=== PATIENT | female | born 1950 | race Caucasian/White ===

== ENCOUNTER 2017-06-24 09:11 | Inpatient (IN) | payer OTHER ==
--- NOTE | 2017-06-24 09:23 | DR.AMS ---
HPI - Time Seen Time seen: 08:20 - HPI Comment HPI Comment: PATIENT IS CONFUSE AND WEAK. SHE IS DEHYDRATED AND CONFUSE. DIARRHEA IS SLOW DOWN. STILL NAUSEATED. - Complaint Cheif Complaint Doctors Comments: GENERALIZE PAIN AND WEAKNESS, N/V/D. STARTED SATURDAY. WORSE TODAY. - Reviewed Nurses Notes Reviewed: Yes - Source History Provided: Patient, Family Member - Mode of Arrival Mode of Arrival: Wheelchair - Timing Came On: Suddenly Symptoms: Worsening - Duration Duration: Constant Duration: Days - Quality Quality: Confusion - Severity Severity: Moderate - Context Recent: Fever, Nausea, Vomiting History Of: None - Associated Signs and Symptoms Associated Signs and Symptoms: Generalized Weakness, Confusion ROS - Review of Systems Constitutional: Fever (AT HOME.), Malaise, Weakness, Fatigue, Loss of Appetite. negative: Chills Eyes: negative: Eye Pain, Discharge ENTM: negative: Ear Pain, Nose Discharge, Nose Congestion, Throat Pain Respiratoy: Short of Breath. negative: Productive Cough, Non-Productive Cough, Wheezing, Hemoptysis Cardiovascular: Chest Pain. negative: Edema, Palpitations, Syncope Gastrointestinal/Abdominal: Abdominal Pain, Diarrhea, Nausea, Vomiting Genitourinary: negative: Dysuria, Hematuria Neurological: Headache, Weakness, Dizziness, Other (AMS) Musculoskeletal: Muscle Pain Integumentary: Dryness Hematologic/Lymphatic: No Symptoms Reported Endocrine: No Symptoms Reported All Other Systems: Reviewed and Negative Unable to Obtain Due To: Altered mental status PE - Vitals Vital Signs: Temp Pulse Pulse Resp BP BP BP 06/24/17 11:00 76 16 103/59 06/24/17 10:04 110/58 06/24/17 09:12 98.9 F 82 18 119/59 Pulse Ox 06/24/17 11:00 96 06/24/17 10:04 06/24/17 09:12 97 - General Limitations: Altered Mental Status General Appearance: Alert - Head Head Exam: Normal Inspection Head Exam Physical: Other (NONE) - Eyes Eye exam: Normal Appearance, PERRL, EOMI, Scleral Icterus. negative: Conjunctival Injection Pupils: Regular, Round: Bilateral, Reactive: Bilateral - ENT ENT Exam: Normal Oropharynx, Normal External Ear Exam, TM's Normal Bilaterally External Ear Exam: Normal External Inspection TM/Canal Exam: Bilateral Normal Nose Exam: Normal Nose Exam Mouth Exam: Normal Inspection Throat Exam: Normal Inspection. negative: Tonsillar Erythema, Tonsillomegaly, Tonsillar Exudate - Neck Neck Exam: Trachea Midline. negative: Tenderness, Meningismus, Lymphadenopathy - Chest Chest Inspection: Symmetric Chest Wall Rise - Respiratory Respiratory Exam: Normal Lung Sounds Bilat Respiratory Exam: Bilateral Rhonchi, Lower Rhonchi - Cardiovascular Cardiovascular Exam: Regular Rate, Normal Rhythm, Normal Heart Sounds - Abdominal Exam Abdominal Exam: Normal Bowel Sounds, Soft, Tenderness Abdominal Tenderness: Diffuse, Moderate - Extremities Extremities Exam: Normal Inspection - Back Back Exam: Normal Inspection - Neurological Neurological Exam: Alert, Other (CONFUSE.) Cranial Nerve Exam: Gag reflex (XI): Normal Motor Strength - LUE: 5/5 Motor Strength - RUE: 5/5 Motor Strength - LLE: 5/5 Motor Strength - RLE: 5/5 Upper Motor Neuron Exam: Babinski Sign: Normal DTR: achilles tendon (L): 4+, achilles tendon (R): 4+, brachioradialis (L): 4+, brachioradialis (R): 4+, Patellar (L): 4+, patellar (R): 4+ - Psychological Psychiatric Exam: Anxious Expanded Psychiatric Exam: Restlessness - Skin Skin Exam: Dry MDM - Additional Information Obtained Additional Information Obtained From: Family - Differential Diagnosis Metabolic: Dehydration, Hypercalcemia, Hypernatremia, Hypoglycemia, Hyponatremia , Hypoxemia Structural: CVA, Mass Lesion Infectious: Sepsis, UTI Course - Treatment Treatment: SEE ORDERS. IN FLUIDS IN ED. - Reevaluation 1st: Improved (SLIGHTLY IMPROVE.) - Consultation Consultation Comments: DISCUSS PATIENT WITH DR. SMITH. HE WILL ADMIT PATIENT. - Education/Counseling Education/Counseling: Patient, Family, Education Educated On: Treatment, Diagnosis ROR - Labs Reviewed Laboratory Results Reviewed?: Yes Result Diagrams: 06/24/17 09:30 06/24/17 09:30 Laboratory: WBC 12.6 X10^3/uL (3.6-10.0) H 06/24/17 09:30 RBC 3.97 X10^6/uL (3.5-5.4) 06/24/17 09:30 Hgb 11.9 g/dL (12.0-16.0) L 06/24/17 09:30 Hct 34.6 % (36.0-47.0) L 06/24/17 09:30 MCV 87.0 fL (80.0-100.0) 06/24/17 09:30 MCH 29.9 pg (27.0-34.0) 06/24/17: MCHC 34.4 g/dL (33.0-35.0) 06/24/17:30 RDW 13.8 % (11.6-16.5) 06/24/17:30 Plt Count 95 X10^3/uL (150.0-450.0) L 06/24/17:30 Plt Count Comment Decreased (ADEQUATE) A 06/24/17: MPV 11.9 fL (7.4-11.0) H 06/24/17:30 Neut % 75.5 % (42.0-75.0) H 06/24/17:30 Lymph % 8.4 % (21.0-51.0) L 06/24/17:30 [place] % 15.3 % (0.0-13.0) H 06/24/17:30 Eos % 0.5 % (0.9-2.9) L 06/24/17:30 Baso % 0.3 % (0.2-1.0) 06/24/17: Neut # 9.5 x10^3/uL (2.2-4.8) H 06/24/17:30 Lymph # 1.1 X10^3/uL (1.3-2.9) L 06/24/17:30 [place] # 1.9 x10^3/uL (0.3-0.8) H 06/24/17:30 Eos # 0.1 x10^3/uL (0.0-0.2) 06/24/17:30 Baso # 0.0 X10^3/uL (0.0-0.1) 06/24/17:30 Absolute Nucleated RBC 0.0 /100WBC 06/24/17:30 Total Counted 100 06/24/17:30 Neutrophils % (Manual) 73 % (39-76) 06/24/17 09:30 Lymphocytes % (Manual) 14 % (13-43) 06/24/17:30 Monocytes % (Manual) 13 % (4-9) H 06/24/17 09:30 Plt Morphology Comment Normal (NORMAL) 06/24/17 09:30 RBC Morphology Normal (NORMAL) 06/24/17 09:30 Sodium 139 mmol/L (136-145) 06/24/17 09:30 Corrected Sodium 139 mmol/L (136-145) 06/24/17 09:30 Potassium 3.1 mmol/L (3.5-5.1) L 06/24/17 09:30 Chloride 105 mmol/L (98-107) 06/24/17 09:30 Carbon Dioxide 22.6 mmol/L (21-32) 06/24/17 09:30 BUN 31 mg/dL (7-18) H 06/24/17 09:30 Creatinine 1.26 mg/dL (0.55-1.02) H 06/24/17 09:30 Est GFR (MDRD) Af Amer 54 (>60) L 06/24/17 09:30 Est GFR (MDRD) Non-Af 45 (>60) L 06/24/17 09:30 Glucose 118 mg/dL (65-99) H 06/24/17 09:30 Calcium 7.9 mg/dL (8.5-10.1) L 06/24/17 09:30 Corrected Calcium 9.5 mg/dL (8.5-10.1) 06/24/17 09:30 Total Bilirubin 4.90 mg/dL (0.2-1.0) H 06/24/17 09:30 AST 58 Units/L (15-37) H 06/24/17 09:30 ALT 31 Units/L (12-78) 06/24/17 09:30 Alkaline Phosphatase 111 Units/L (46-116) 06/24/17:30 Ammonia 12 umol/L (11-32) 06/24/17 09:30 Creatine Kinase 64 Units/L (26-192) 06/24/17 09:30 CK-MB (CK-2) < 1.0 ng/mL (0-4.0) 06/24/17 09:30 CK/CKMB % Calc 1.6 % (<4) 06/24/17 09:30 Troponin I < 0.02 ng/mL (0-1.5) 06/24/17 09:30 Total Protein 6.7 g/dL (6.4-8.2) 06/24/17 09:30 Albumin 2.0 g/dL (3.4-5.0) L 06/24/17 09:30 Globulin 4.7 g/dL (2.5-4.5) H 06/24/17 09:30 Albumin/Globulin Ratio 0.4 Ratio (1.1-2.1) L 06/24/17 09:30 Amylase 15 Units/L (25-115) L 06/24/17 09:30 Lipase 116 Units/L (73-393) 06/24/17 09:30 Influenza Type A (PCR) Negative (NEGATIVE) 06/24/17 10:00 Influenza Type B (PCR) Negative (NEGATIVE) 06/24/17 10:00 - XRAY XRAY Interpreted by: Radiologist XRAY Findings: REPORT DISCUSS WITH PATIENT. - Diagnosis Discharge Problem: Dehydration, Gastroenteritis, Hyperbilirubinemia, Biliary obstruction Abdominal pain Qualifiers: Abdominal location: generalized Qualified Code(s): R10.84 - Generalized abdominal pain - Discharge Plan Disposition: ADMITTED INPATIENT Condition: Stable - Follow ups/Referrals - Instructions
[2017-06-24] MEDS ORDERED: NS 1000 ML 1,000 ML IV ONE ×2 (09:30→12:00)
[2017-06-24 09:44] LABS: BASOPHILS % (AUTO) 0.3 % (0.2-1.0); EOSINOPHILS # (AUTO) 0.1 x10^3/uL (0.0-0.2); EOSINOPHILS % (AUTO) 0.5 % (0.9-2.9); HEMATOCRIT 34.6 % (36.0-47.0); HEMOGLOBIN 11.9 g/dL (12.0-16.0); LYMPHOCYTES # (AUTO) 1.1 X10^3/uL (1.3-2.9); LYMPHOCYTES % (AUTO) 8.4 % (21.0-51.0); MEAN CORPUSCULAR HEMOGLOBIN 29.9 pg (27.0-34.0); MEAN CORPUSCULAR HGB CONC 34.4 g/dL (33.0-35.0); MEAN PLATELET VOLUME 11.9 fL (7.4-11.0); MONOCYTES # (AUTO) 1.9 x10^3/uL (0.3-0.8); MONOCYTES % (AUTO) 15.3 % (0.0-13.0); NEUTROPHILS # (AUTO) 9.5 x10^3/uL (2.2-4.8); NEUTROPHILS % (AUTO) 75.5 % (42.0-75.0); PLATELET COUNT 95 X10^3/uL (150.0-450.0); RED BLOOD COUNT 3.97 X10^6/uL (3.5-5.4); RED CELL DISTRIBUTION WIDTH 13.8 % (11.6-16.5); WHITE BLOOD COUNT 12.6 X10^3/uL (3.6-10.0)
[2017-06-24 10:01] LABS: AMMONIA 12 umol/L (11-32)
--- NOTE | 2017-06-24 10:01 | CT ---
HISTORY: Altered mental status. Study: CT brain without contrast Comparison: None. Technique: Multiple axial images of the brain were obtained from the skull base to the vertex without administra tion of IV contrast. Dose reduction techniques including Automated Exposure Control (AEC) and adjust ment of mA and kV were utilized. Findings: Age-related cortical atrophy and chronic small vessel ischemic changes. No acute intraparenchymal hem orrhage or mass can be identified. No extra-axial fluid collections are seen. No alteration in the attenuation of the brain parenchyma can be identified to suggest acute or subacute ischemic change. The ventricular system is symmetric and nondilated. Mucous retention cysts are seen within the left m axillary sinus and left sphenoid sinus. Remaining visualized paranasal sinuses and mastoid air cells are clear. The osseous structures are intact. IMPRESSION: No obvious acute intracranial pathology. If clinically concerned for acute ischemia/infar ction, MRI brain is more sensitive. Reported By:
[2017-06-24 10:02] LABS: ALANINE AMINOTRANSFERASE 31 Units/L (12-78); ALKALINE PHOSPHATASE 111 Units/L (46-116); AMYLASE 15 Units/L (25-115); ASPARTATE AMINO TRANSFERASE 58 Units/L (15-37); BLOOD UREA NITROGEN 31 mg/dL (7-18); CALCIUM 7.9 mg/dL (8.5-10.1); CARBON DIOXIDE 22.6 mmol/L (21-32); CHLORIDE 105 mmol/L (98-107); CKMB % 1.6 % (<4); COR CA(FOR HYPOALB) 9.5 mg/dL (8.5-10.1); COR NA(FOR HYPERGLY) 139 mmol/L (136-145); CREATINE KINASE 64 Units/L (26-192); CREATINE KINASE MB < 1.0 ng/mL (0-4.0); CREATININE 1.26 mg/dL (0.55-1.02); LIPASE 116 Units/L (73-393); SODIUM 139 mmol/L (136-145); TOTAL PROTEIN 6.7 g/dL (6.4-8.2); TROPONIN I < 0.02 ng/mL (0-1.5); eGFR BLACK RACES 54 (>60); eGFR NON BLACK RACES 45 (>60)
[2017-06-24 10:04] LABS: PLATELET MORPHOLOGY COMMENT NORMAL (NORMAL)
--- NOTE | 2017-06-24 10:05 | RAD ---
History: Weakness Study: Chest single view Findings: Single AP portable examination of the chest is performed. There is a poor inspiratory effor t exaggerating heart size. There is a masslike density in the lower right paratracheal area extending to the right hilum. Lungs appear clear. Impression: Right paratracheal and right hilar mass possibly representing adenopathy is demonstrated. Follow-up CT examination is recommended. Reported By:
--- NOTE | 2017-06-24 13:13 | CT ---
HISTORY: Nausea, vomiting, weakness Study: CT chest abdomen pelvis with contrast Comparison: None Technique: Axial noncontrast images with coronal and sagittal reformats. Dose reduction procedures we re used with mA/kv adjusted for body size. This examination is limited due to the lack of intravenous and oral contrast. Findings: Chest CT without contrast: Examination of the mediastinum demonstrated no evidence for mediastinal ma sses, enlarged mediastinal adenopathy, or enlarged hilar adenopathy to the limitations of an unenhanc ed examination. Coronary artery calcifications are present. No pleural effusions are identified. No c hest wall or axillary abnormality is identified. Examination of the lung moore demonstrated no evide nce for nodules, masses, alveolar infiltrates, areas of consolidation, peribronchial thickening, or b ronchiectasis. CT abdomen pelvis without contrast the liver, spleen, adrenal glands, and pancreas are within normal limits only to the limitations of an unenhanced examination. No opaque stones are visible within the gallbladder. The left kidney is unobstructed and without stones. No left ureteral calculi are identif ied. There is right-sided hydro nephrosis proximal to an 18 mm renal pelvic calculus at the ureterope lvic junction. More distally the ureter is normal. calcific atherosclerotic changes present in a nond ilated abdominal aorta. No intraperitoneal or retroperitoneal lymphadenopathy is identified. There ar e no findings suggestive of diverticulitis or colitis. No pelvic masses, pelvic fluid, or pelvic lymp hadenopathy is identified. No bladder abnormality is identified. No lytic or blastic skeletal lesions are identified. IMPRESSION: No significant abnormality in the chest to the limitations of an unenhanced examination 18 mm obstructing right renal pelvic calculus located at the ureteropelvic junction Reported By:
[2017-06-24] MEDS ORDERED: PEPCID 20 MG IV PREMIX* 20 MG/50 ML BAG IV PRN (14:32)
[2017-06-24] MEDS ORDERED: ZOFRAN INJ 4 MG VIAL IVP PRN (14:32)
[2017-06-24] MEDS ORDERED: NS + KCL 20 MEQ/L 1,000 ML IV ONE (15:09)
[2017-06-24] MEDS: NS + KCL 20 MEQ/L 1,000 ML IV SCH (15:10)
[2017-06-24 15:45] LABS: BILIRUBIN,URINE 2+ (NEGATIVE); BLOOD/HEMOGLOBIN,URINE 5+ (NEGATIVE); GLUCOSE, URINE NEGATIVE (NEGATIVE); KETONES,URINE NEGATIVE (NEGATIVE); LEUKOCYTE ESTERASE ,URINE 3+ (NEGATIVE); NITRITES,URINE POSITIVE (NEGATIVE); PROTEIN,URINE 3+ (NEGATIVE); UROBILINOGEN,URINE 3+ (NORMAL)
[2017-06-24 15:52] LABS: APPEARANCE,URINE CLOUDY (CLEAR); COLOR,URINE ORANGE (YELLOW)
[2017-06-24 15:53] LABS: AMORPHOUS SEDIMENT,UR 1+ /HPF (NEGATIVE); BACTERIA,URINE 4+ /HPF (NEGATIVE); SQUAMOUS EPITHELIAL CELL,UR RARE /HPF (NEGATIVE)
[2017-06-24 16:26] VITALS: BMI 43.4
[2017-06-24] MEDS: PEPCID 20 MG IV PREMIX* 20 MG/50 ML BAG IV SCH ×2 (16:58→20:19)
[2017-06-24] MEDS: COLACE CAP 100 MG PO SCH ×2 (17:06→21:39)
[2017-06-24] MEDS: NS 1000 ML 1,000 ML IV SCH ×2 (17:31→21:38)
[2017-06-24 18:55] LABS: BILIRUBIN,URINE 2+ (NEGATIVE); BLOOD/HEMOGLOBIN,URINE 5+ (NEGATIVE); GLUCOSE, URINE NEGATIVE (NEGATIVE); KETONES,URINE NEGATIVE (NEGATIVE); LEUKOCYTE ESTERASE ,URINE 3+ (NEGATIVE); NITRITES,URINE NEGATIVE (NEGATIVE); PROTEIN,URINE 3+ (NEGATIVE); UROBILINOGEN,URINE 3+ (NORMAL)
[2017-06-24 19:06] LABS: APPEARANCE,URINE CLOUDY (CLEAR); COLOR,URINE AMBER (YELLOW)
[2017-06-24 19:07] LABS: AMORPHOUS SEDIMENT,UR 1+ /HPF (NEGATIVE); BACTERIA,URINE 4+ /HPF (NEGATIVE); SQUAMOUS EPITHELIAL CELL,UR RARE /HPF (NEGATIVE)
[2017-06-24] MEDS: MORPHINE SULFATE INJ 2 MG INJ IVP PRN (20:19)
[2017-06-24] MEDS: MILK OF MAGNESIA PO SCH (21:38)
[2017-06-24] MEDS: ROCEPHIN VIAL 1 GM 1 GM in NS 100 ML IV + SPIKE MINIBAG* 100 ML IV SCH (21:38)
[2017-06-25] MEDS: NS + KCL 20 MEQ/L 1,000 ML IV SCH ×2 (00:06→06:38)
[2017-06-25 05:09] LABS: BASOPHILS % (AUTO) 0.2 % (0.2-1.0); EOSINOPHILS % (AUTO) 0.4 % (0.9-2.9); HEMATOCRIT 31.9 % (36.0-47.0); HEMOGLOBIN 10.8 g/dL (12.0-16.0); LYMPHOCYTES # (AUTO) 0.9 X10^3/uL (1.3-2.9); LYMPHOCYTES % (AUTO) 8.1 % (21.0-51.0); MEAN CORPUSCULAR HEMOGLOBIN 29.8 pg (27.0-34.0); MEAN CORPUSCULAR HGB CONC 33.9 g/dL (33.0-35.0); MEAN CORPUSCULAR VOLUME 88.1 fL (80.0-100.0); MEAN PLATELET VOLUME 12.4 fL (7.4-11.0); MONOCYTES # (AUTO) 1.4 x10^3/uL (0.3-0.8); MONOCYTES % (AUTO) 12.2 % (0.0-13.0); NEUTROPHILS # (AUTO) 9.1 x10^3/uL (2.2-4.8); NEUTROPHILS % (AUTO) 79.1 % (42.0-75.0); PLATELET COUNT 115 X10^3/uL (150.0-450.0); RED BLOOD COUNT 3.62 X10^6/uL (3.5-5.4); RED CELL DISTRIBUTION WIDTH 13.9 % (11.6-16.5); WHITE BLOOD COUNT 11.5 X10^3/uL (3.6-10.0)
[2017-06-25] MEDS: NS 1000 ML 1,000 ML IV SCH ×6 (05:20→23:42)
[2017-06-25] MEDS: MORPHINE SULFATE INJ 2 MG INJ IVP PRN ×2 (05:21→13:03)
[2017-06-25 05:22] LABS: ALANINE AMINOTRANSFERASE 33 Units/L (12-78); ALBUMIN 1.6 g/dL (3.4-5.0); ALKALINE PHOSPHATASE 105 Units/L (46-116); AMYLASE 18 Units/L (25-115); ASPARTATE AMINO TRANSFERASE 66 Units/L (15-37); BLOOD UREA NITROGEN 23 mg/dL (7-18); CALCIUM 7.1 mg/dL (8.5-10.1); CHLORIDE 111 mmol/L (98-107); CREATININE 1.04 mg/dL (0.55-1.02); LIPASE 126 Units/L (73-393); SODIUM 142 mmol/L (136-145); eGFR BLACK RACES > 60 (>60); eGFR NON BLACK RACES 56 (>60)
[2017-06-25] MEDS: MILK OF MAGNESIA PO SCH ×2 (08:39→21:35)
[2017-06-25] MEDS: ROCEPHIN VIAL 1 GM 1 GM in NS 100 ML IV + SPIKE MINIBAG* 100 ML IV SCH (08:47)
[2017-06-25] MEDS: PEPCID 20 MG IV PREMIX* 20 MG/50 ML BAG IV SCH ×2 (08:47→21:40)
--- NOTE | 2017-06-25 11:48 | MRI ---
MRCP Indication: Hyperbilirubinemia, jaundice Technique: Multiplanar, multisequence imaging of the abdomen without contrast with MRCP imaging perfo rmed per departmental protocol. Comparison: CT dated 06/24/2017 Findings: No focal hepatic lesion. There is moderate gallbladder dilatation without definite filling defect to suggest gallstone or pericholecystic fluid to suggest acute cholecystitis. Common bile duct is normal in caliber. No filling defect. The spleen is unremarkable. The pancreas demonstrates mild prominence without dilatation of the pancreatic duct. No pancreatic mass. No peripancreatic fluid col lection or adenopathy. Adrenal glands are normal. Both kidneys demonstrate round T2 hyperintense lesi ons consistent with cyst. There is an approximate 15 mm stone within the right renal pelvis. Noted hy dronephrosis is identified. Visualized GI tract is unremarkable. Abdominal aorta is normal in caliber . No adenopathy within the visualized abdomen. Impression: 1. Gallbladder distention without cholelithiasis or acute cholecystitis. Normal caliber of the intrah epatic and extrahepatic bile ducts. 2. Multiple bilateral renal cysts with an approximate 15 mm stone within the right renal pelvis. Reported By:
[2017-06-25] MEDS ORDERED: LEVAQUIN PREMIX IV 500 MG 500 MG/100 ML BAG IV SCH (14:00)
[2017-06-25] MEDS ORDERED: NS 1000 ML 1,000 ML IV SCH (15:13)
[2017-06-25] MEDS: TYLENOL 325 MG TAB PO PRN (20:13)
[2017-06-25] MEDS: COLACE CAP 100 MG PO SCH (21:35)
[2017-06-26] MEDS: NS 1000 ML 1,000 ML IV SCH ×2 (04:36→21:01)
[2017-06-26] MEDS: TYLENOL 325 MG TAB PO PRN (05:29)
[2017-06-26 06:13] LABS: BASOPHILS % (AUTO) 0.3 % (0.2-1.0); EOSINOPHILS # (AUTO) 0.1 x10^3/uL (0.0-0.2); EOSINOPHILS % (AUTO) 0.7 % (0.9-2.9); HEMATOCRIT 33.5 % (36.0-47.0); HEMOGLOBIN 11.2 g/dL (12.0-16.0); LYMPHOCYTES # (AUTO) 0.9 X10^3/uL (1.3-2.9); LYMPHOCYTES % (AUTO) 6.5 % (21.0-51.0); MEAN CORPUSCULAR HEMOGLOBIN 29.6 pg (27.0-34.0); MEAN CORPUSCULAR HGB CONC 33.4 g/dL (33.0-35.0); MEAN CORPUSCULAR VOLUME 88.6 fL (80.0-100.0); MEAN PLATELET VOLUME 12.5 fL (7.4-11.0); NEUTROPHILS # (AUTO) 12.3 x10^3/uL (2.2-4.8); NEUTROPHILS % (AUTO) 85.5 % (42.0-75.0); PLATELET COUNT 158 X10^3/uL (150.0-450.0); RED BLOOD COUNT 3.78 X10^6/uL (3.5-5.4); RED CELL DISTRIBUTION WIDTH 14.2 % (11.6-16.5); WHITE BLOOD COUNT 14.4 X10^3/uL (3.6-10.0)
[2017-06-26 06:29] LABS: ALANINE AMINOTRANSFERASE 44 Units/L (12-78); ALBUMIN 1.6 g/dL (3.4-5.0); ALKALINE PHOSPHATASE 130 Units/L (46-116); ASPARTATE AMINO TRANSFERASE 86 Units/L (15-37); BLOOD UREA NITROGEN 18 mg/dL (7-18); CALCIUM 7.5 mg/dL (8.5-10.1); CARBON DIOXIDE 23.4 mmol/L (21-32); CHLORIDE 109 mmol/L (98-107); COR CA(FOR HYPOALB) 9.4 mg/dL (8.5-10.1); CREATININE 0.91 mg/dL (0.55-1.02); SODIUM 141 mmol/L (136-145); TOTAL PROTEIN 6.4 g/dL (6.4-8.2); eGFR BLACK RACES > 60 (>60); eGFR NON BLACK RACES > 60 (>60)
[2017-06-26] MEDS ORDERED: PHARMACY CONSULT - DOSE _____ XX SCH (09:00)
[2017-06-26] MEDS: MORPHINE SULFATE INJ 2 MG INJ IVP PRN (09:37)
[2017-06-26] MEDS: PEPCID 20 MG IV PREMIX* 20 MG/50 ML BAG IV SCH ×2 (09:38→20:59)
[2017-06-26] MEDS: ROCEPHIN VIAL 1 GM 1 GM in NS 100 ML IV + SPIKE MINIBAG* 100 ML IV SCH (09:38)
[2017-06-26] MEDS: MILK OF MAGNESIA PO SCH ×3 (09:39→21:00)
[2017-06-26] MEDS: MERREM VIAL 500 MG in NS 100 ML IV + SPIKE MINIBAG* 100 ML IV SCH ×2 (13:11→21:00)
[2017-06-26] MEDS ORDERED: MERREM PREMIX IV 500 MG 500 MG/50 ML BAG IV SCH (14:00)
[2017-06-26 16:47] LABS: STOOL FOR WBC NEGATIVE (NEGATIVE)
[2017-06-26] MEDS: COLACE CAP 100 MG PO SCH (21:00)
[2017-06-26] MEDS: TORADOL 15 MG VIAL IVP PRN (21:01)
--- NOTE | 2017-06-26 21:48 | US ---
Gallbladder sonogram Indication: Severe abdominal pain Comparison: CT performed on 06/24/2017 Technique: Multiple duarte scale and color flow Doppler images of the right upper quadrant were obtaine d. Findings: The liver is mildly increased in echogenicity consistent with steatosis however normal in size. No fo maikel hepatic lesion identified. The gallbladder is normal in caliber and wall thickness with questiona ble either small polyp or sludge ball within the gallbladder lumen. No pericholecystic fluid. The rig ht kidney measures 13 cm without evidence of hydronephrosis. IVC is within normal limits. No pancreat ic head mass or fluid collection identified.. IMPRESSION: 1. Either small polyp or sludge ball within the gallbladder without sonographic evidence of acute cho lecystitis. 2. Mild hepatic steatosis. Reported By:
[2017-06-27] MEDS: NS 1000 ML 1,000 ML IV SCH ×5 (04:37→21:44)
[2017-06-27] MEDS: MERREM VIAL 500 MG in NS 100 ML IV + SPIKE MINIBAG* 100 ML IV SCH ×3 (05:10→21:46)
[2017-06-27 06:12] LABS: BASOPHILS % (AUTO) 0.4 % (0.2-1.0); EOSINOPHILS # (AUTO) 0.2 x10^3/uL (0.0-0.2); EOSINOPHILS % (AUTO) 1.3 % (0.9-2.9); HEMATOCRIT 29.5 % (36.0-47.0); HEMOGLOBIN 9.9 g/dL (12.0-16.0); LYMPHOCYTES # (AUTO) 1.2 X10^3/uL (1.3-2.9); LYMPHOCYTES % (AUTO) 10.3 % (21.0-51.0); MEAN CORPUSCULAR HEMOGLOBIN 29.9 pg (27.0-34.0); MEAN CORPUSCULAR HGB CONC 33.6 g/dL (33.0-35.0); MEAN PLATELET VOLUME 11.6 fL (7.4-11.0); MONOCYTES # (AUTO) 0.9 x10^3/uL (0.3-0.8); MONOCYTES % (AUTO) 7.2 % (0.0-13.0); NEUTROPHILS # (AUTO) 9.7 x10^3/uL (2.2-4.8); NEUTROPHILS % (AUTO) 80.8 % (42.0-75.0); PLATELET COUNT 196 X10^3/uL (150.0-450.0); RED BLOOD COUNT 3.32 X10^6/uL (3.5-5.4); RED CELL DISTRIBUTION WIDTH 13.8 % (11.6-16.5)
[2017-06-27 06:41] LABS: ALANINE AMINOTRANSFERASE 49 Units/L (12-78); ALBUMIN 1.4 g/dL (3.4-5.0); ALKALINE PHOSPHATASE 123 Units/L (46-116); ASPARTATE AMINO TRANSFERASE 93 Units/L (15-37); BLOOD UREA NITROGEN 17 mg/dL (7-18); CALCIUM 7.2 mg/dL (8.5-10.1); CARBON DIOXIDE 22.4 mmol/L (21-32); CHLORIDE 110 mmol/L (98-107); COR CA(FOR HYPOALB) 9.3 mg/dL (8.5-10.1); SODIUM 141 mmol/L (136-145); eGFR BLACK RACES > 60 (>60); eGFR NON BLACK RACES > 60 (>60)
[2017-06-27] MEDS: MILK OF MAGNESIA PO SCH ×2 (09:04→21:53)
[2017-06-27] MEDS: ROCEPHIN VIAL 1 GM 1 GM in NS 100 ML IV + SPIKE MINIBAG* 100 ML IV SCH (09:05)
[2017-06-27] MEDS: PEPCID 20 MG IV PREMIX* 20 MG/50 ML BAG IV SCH ×2 (09:05→21:45)
[2017-06-27] MEDS: TORADOL 15 MG VIAL IVP PRN (12:20)
--- NOTE | 2017-06-27 16:23 | NM ---
HISTORY: 66-year-old female with abnormal right upper quadrant ultrasound. Study: Nuclear medicine HIDA scan with ejection fraction Comparison: Right upper quadrant ultrasound 06/26/2017 Technique: Multiple scintigraphic images of the abdomen were obtained the intravenous administration of 5.5 mCi of technetium labeled Choletec. Following distention of the gallbladder with radiotracer a fatty meal consisting of 8 oz ensure plus was ingested. An estimated gallbladder ejection fraction was calculated based on the physiologic res ponse of this infusion. Findings: Homogeneous uptake of radiotracer is seen throughout the liver. The intrabiliary ductal system is ob served normally. The common hepatic and common bile duct grossly appear unremarkable with normal maribel iary-bowel transit. The gallbladder is observed to fill normally. After administration of fatty meal orally, an abnormal gallbladder ejection fraction of 10% (normal > 35%) is observed. IMPRESSION: 1. Normal hepatobiliary imaging scan. 2. Abnormally low gallbladder ejection fraction, this can be seen with chronic cholecystitis and maribel iary dyskinesia, correlate clinically and consider surgical consultation. Reported By:
[2017-06-27] MEDS: COLACE CAP 100 MG PO SCH (21:44)
[2017-06-27] MEDS: MORPHINE SULFATE INJ 2 MG INJ IVP PRN (21:45)
[2017-06-28] MEDS: NS 1000 ML 1,000 ML IV SCH ×6 (00:20→20:45)
[2017-06-28 06:06] LABS: ALANINE AMINOTRANSFERASE 56 Units/L (12-78); ALBUMIN 1.5 g/dL (3.4-5.0); ALKALINE PHOSPHATASE 196 Units/L (46-116); ASPARTATE AMINO TRANSFERASE 126 Units/L (15-37); BLOOD UREA NITROGEN 16 mg/dL (7-18); CALCIUM 6.9 mg/dL (8.5-10.1); CARBON DIOXIDE 22.1 mmol/L (21-32); CHLORIDE 109 mmol/L (98-107); COR CA(FOR HYPOALB) 8.9 mg/dL (8.5-10.1); CREATININE 0.76 mg/dL (0.55-1.02); SODIUM 141 mmol/L (136-145); eGFR BLACK RACES > 60 (>60); eGFR NON BLACK RACES > 60 (>60)
[2017-06-28] MEDS: MERREM VIAL 500 MG in NS 100 ML IV + SPIKE MINIBAG* 100 ML IV SCH ×3 (06:06→22:07)
[2017-06-28] MEDS: MORPHINE SULFATE INJ 2 MG INJ IVP PRN ×2 (06:07→19:23)
[2017-06-28 06:14] LABS: BASOPHILS # (AUTO) 0.1 X10^3/uL (0.0-0.1); BASOPHILS % (AUTO) 0.6 % (0.2-1.0); EOSINOPHILS # (AUTO) 0.1 x10^3/uL (0.0-0.2); EOSINOPHILS % (AUTO) 0.9 % (0.9-2.9); HEMATOCRIT 28.7 % (36.0-47.0); HEMOGLOBIN 9.8 g/dL (12.0-16.0); LYMPHOCYTES # (AUTO) 1.3 X10^3/uL (1.3-2.9); LYMPHOCYTES % (AUTO) 12.7 % (21.0-51.0); MEAN CORPUSCULAR HEMOGLOBIN 30.2 pg (27.0-34.0); MEAN CORPUSCULAR HGB CONC 34.2 g/dL (33.0-35.0); MEAN CORPUSCULAR VOLUME 88.2 fL (80.0-100.0); MEAN PLATELET VOLUME 11.9 fL (7.4-11.0); MONOCYTES # (AUTO) 0.7 x10^3/uL (0.3-0.8); MONOCYTES % (AUTO) 6.3 % (0.0-13.0); NEUTROPHILS # (AUTO) 8.4 x10^3/uL (2.2-4.8); NEUTROPHILS % (AUTO) 79.5 % (42.0-75.0); PLATELET COUNT 228 X10^3/uL (150.0-450.0); RED BLOOD COUNT 3.25 X10^6/uL (3.5-5.4); WHITE BLOOD COUNT 10.5 X10^3/uL (3.6-10.0)
[2017-06-28] MEDS: ROCEPHIN VIAL 1 GM 1 GM in NS 100 ML IV + SPIKE MINIBAG* 100 ML IV SCH (08:21)
[2017-06-28] MEDS: MILK OF MAGNESIA PO SCH ×2 (08:21→20:46)
[2017-06-28] MEDS: PEPCID 20 MG IV PREMIX* 20 MG/50 ML BAG IV SCH ×2 (08:21→20:45)
[2017-06-28] MEDS: TORADOL 15 MG VIAL IVP PRN (12:09)
[2017-06-28] MEDS: COLACE CAP 100 MG PO SCH (20:46)
[2017-06-29] MEDS: NS 1000 ML 1,000 ML IV SCH ×7 (00:33→22:35)
[2017-06-29] MEDS: MERREM VIAL 500 MG in NS 100 ML IV + SPIKE MINIBAG* 100 ML IV SCH ×2 (05:35→15:25)
[2017-06-29 05:36] LABS: BASOPHILS # (AUTO) 0.1 X10^3/uL (0.0-0.1); BASOPHILS % (AUTO) 0.6 % (0.2-1.0); EOSINOPHILS # (AUTO) 0.1 x10^3/uL (0.0-0.2); EOSINOPHILS % (AUTO) 1.2 % (0.9-2.9); HEMATOCRIT 28.2 % (36.0-47.0); HEMOGLOBIN 9.6 g/dL (12.0-16.0); LYMPHOCYTES # (AUTO) 1.5 X10^3/uL (1.3-2.9); LYMPHOCYTES % (AUTO) 15.2 % (21.0-51.0); MEAN CORPUSCULAR HEMOGLOBIN 30.1 pg (27.0-34.0); MEAN CORPUSCULAR HGB CONC 34.2 g/dL (33.0-35.0); MEAN CORPUSCULAR VOLUME 87.9 fL (80.0-100.0); MEAN PLATELET VOLUME 11.5 fL (7.4-11.0); MONOCYTES # (AUTO) 0.7 x10^3/uL (0.3-0.8); MONOCYTES % (AUTO) 7.2 % (0.0-13.0); NEUTROPHILS # (AUTO) 7.5 x10^3/uL (2.2-4.8); NEUTROPHILS % (AUTO) 75.8 % (42.0-75.0); PLATELET COUNT 258 X10^3/uL (150.0-450.0); RED CELL DISTRIBUTION WIDTH 13.9 % (11.6-16.5); WHITE BLOOD COUNT 9.9 X10^3/uL (3.6-10.0)
[2017-06-29 05:41] LABS: ALANINE AMINOTRANSFERASE 52 Units/L (12-78); ALBUMIN 1.5 g/dL (3.4-5.0); ALKALINE PHOSPHATASE 184 Units/L (46-116); ASPARTATE AMINO TRANSFERASE 99 Units/L (15-37); BLOOD UREA NITROGEN 13 mg/dL (7-18); CARBON DIOXIDE 25.4 mmol/L (21-32); CHLORIDE 108 mmol/L (98-107); CREATININE 0.77 mg/dL (0.55-1.02); SODIUM 141 mmol/L (136-145); TOTAL PROTEIN 5.9 g/dL (6.4-8.2); eGFR BLACK RACES > 60 (>60); eGFR NON BLACK RACES > 60 (>60)
[2017-06-29] MEDS ORDERED: POTASSIUM CHL 60 MEQ/NS 0.45% 500 ML IV PRN (07:34)
[2017-06-29] MEDS ORDERED: MAGNESIUM SULFATE 1 GM/100 mL PREMIX 1 GM/100 ML BAG IV PRN (07:34)
[2017-06-29] MEDS ORDERED: K-LYTE EFFERVESCENT PO PRN (07:34)
[2017-06-29] MEDS ORDERED: K-RIDER 10 MEQ/NS 100 ML 10 MEQ/100 ML BAG IV PRN (07:34)
[2017-06-29] MEDS ORDERED: POTASSIUM CHL 40 MEQ/NS 0.45% 500 ML IV PRN (07:34)
[2017-06-29] MEDS ORDERED: MAG-OX TAB PO PRN (07:34)
[2017-06-29] MEDS ORDERED: POTASSIUM CHLORIDE LIQ 20 MEQ UDC PO PRN (07:34)
[2017-06-29] MEDS: PEPCID 20 MG IV PREMIX* 20 MG/50 ML BAG IV SCH ×2 (08:56→22:03)
[2017-06-29] MEDS: MILK OF MAGNESIA PO SCH ×2 (08:56→20:39)
[2017-06-29] MEDS: ROCEPHIN VIAL 1 GM 1 GM in NS 100 ML IV + SPIKE MINIBAG* 100 ML IV SCH (08:56)
--- NOTE | 2017-06-29 17:17 | CT ---
CT ABDOMEN AND PELVIS WITHOUT CONTRAST CLINICAL HISTORY: 66-year-old female with abdominal pain. COMPARISON: CT of the chest, abdomen and pelvis 06/24/2017. TECHNIQUE: Multiple contiguous computed tomographic axial images of the abdomen and pelvis were obtai mati without the use of oral or intravenous contrast. Images were reformatted in the coronal and sagit nidia planes. FINDINGS: Interval development of moderate right and small left pleural effusions with associated compressive a telectasis without mass, nodule or pneumothorax. The imaged inferior mediastinum and heart are ivania l in appearance without evidence of pericardial effusion. The liver, gallbladder, pancreas, and spleen are within normal limits for noncontrast imaging. Adrenal glands are unremarkable bilaterally. Re-demonstration of large obstructing right UPJ stone measuring approximately 1.4 cm with right renal edema and perihilar nephric/periureteric stranding. Mild periureteral stranding distal to this with no other ureteral stone. No evidence of bladder stone. No left-sided nephroureterolithiasis or hydroureteronephrosis. Ureters follow a normal course to a well-distended urinary bladder. Status post hysterectomy. Vaginal cuff and adnexa are unremarkable. Pelvic phleboliths are present. The appendix is normal in appearance. The bowel is without obstruction or inflammation and there is no free fluid or free air within the peritoneal cavity. There are no pathologically enlarged lymph n odes in the abdomen or pelvis. Scattered atherosclerotic calcification throughout the aorta and its branches. Large body habitus with mild body wall edema. The osseous structures are intact without fracture or malalignment. Stable degenerative changes of th e imaged spine. IMPRESSION: 1. Re-demonstration of obstructive right UPJ stone measuring approximately 1.4 cm with associated hyd roureteronephrosis, renal edema and associated inflammation. Correlate with urinalysis. 2. Normal appendix. 3. Status post hysterectomy. Reported By:
[2017-06-29] MEDS: COLACE CAP 100 MG PO SCH (20:39)
[2017-06-29] MEDS: INVANZ INJ 1 GM VIAL 1 GM in NS 100 ML IV + SPIKE MINIBAG* 100 ML IV SCH (20:39)
[2017-06-29] MEDS ORDERED: POTASSIUM CHLORIDE LIQ 20 MEQ UDC PO ONE (22:14)
[2017-06-29] MEDS ORDERED: PEPCID TAB 20 MG PO ONE (22:15)
[2017-06-29] MEDS: ULTRAM PO PRN (22:45)
[2017-06-30] MEDS: NS 1000 ML 1,000 ML IV SCH ×6 (03:55→23:58)
[2017-06-30 05:35] LABS: BASOPHILS # (AUTO) 0.1 X10^3/uL (0.0-0.1); EOSINOPHILS # (AUTO) 0.2 x10^3/uL (0.0-0.2); EOSINOPHILS % (AUTO) 1.9 % (0.9-2.9); HEMOGLOBIN 9.2 g/dL (12.0-16.0); LYMPHOCYTES # (AUTO) 1.8 X10^3/uL (1.3-2.9); LYMPHOCYTES % (AUTO) 21.9 % (21.0-51.0); MEAN CORPUSCULAR HEMOGLOBIN 30.2 pg (27.0-34.0); MEAN CORPUSCULAR HGB CONC 34.3 g/dL (33.0-35.0); MEAN CORPUSCULAR VOLUME 88.1 fL (80.0-100.0); MEAN PLATELET VOLUME 11.2 fL (7.4-11.0); MONOCYTES # (AUTO) 0.6 x10^3/uL (0.3-0.8); MONOCYTES % (AUTO) 7.9 % (0.0-13.0); NEUTROPHILS # (AUTO) 5.5 x10^3/uL (2.2-4.8); NEUTROPHILS % (AUTO) 67.3 % (42.0-75.0); PLATELET COUNT 277 X10^3/uL (150.0-450.0); RED BLOOD COUNT 3.06 X10^6/uL (3.5-5.4); RED CELL DISTRIBUTION WIDTH 14.2 % (11.6-16.5); WHITE BLOOD COUNT 8.1 X10^3/uL (3.6-10.0)
[2017-06-30 05:51] LABS: ALANINE AMINOTRANSFERASE 53 Units/L (12-78); ALBUMIN 1.5 g/dL (3.4-5.0); ALKALINE PHOSPHATASE 216 Units/L (46-116); ASPARTATE AMINO TRANSFERASE 99 Units/L (15-37); BLOOD UREA NITROGEN 9 mg/dL (7-18); CALCIUM 7.1 mg/dL (8.5-10.1); CHLORIDE 109 mmol/L (98-107); COR CA(FOR HYPOALB) 9.1 mg/dL (8.5-10.1); CREATININE 0.61 mg/dL (0.55-1.02); SODIUM 141 mmol/L (136-145); TOTAL PROTEIN 6.1 g/dL (6.4-8.2); eGFR BLACK RACES > 60 (>60); eGFR NON BLACK RACES > 60 (>60)
[2017-06-30] MEDS ORDERED: INVANZ INJ 1 GM VIAL IM ONE (09:00)
[2017-06-30] MEDS ORDERED: PEPCID TAB 20 MG PO ONE (09:00)
[2017-06-30] MEDS: INVANZ INJ 1 GM VIAL 1 GM in NS 100 ML IV + SPIKE MINIBAG* 100 ML IV SCH (09:31)
[2017-06-30] MEDS: PEPCID 20 MG IV PREMIX* 20 MG/50 ML BAG IV SCH (09:31)
[2017-06-30] MEDS: MILK OF MAGNESIA PO SCH ×2 (09:31→21:41)
[2017-06-30] MEDS ORDERED: XYLOCAINE 1 % (PLAIN) ONE (10:27)
--- NOTE | 2017-06-30 13:32 | DR.H&P ---
H&P - History & Physical for Day of: H&P Date: 06/24/17 - Chief Complaint Chief Complaint: REPORTS PER FAMILY- PATIENT IS CONFUSE AND WEAK. SHE IS DEHYDRATED AND CONFUSE. DIARRHEA IS SLOW DOWN. STILL NAUSEATED. - Allergies Allergies/Adverse Reactions: Allergies Allergy/AdvReac Type Severity Reaction Status Date / Time No Known Drug Allergies Allergy Verified 06/24/17 09:31 - History of Present Illness History of Present Illness: PT IS 66 WF ER ADMIT AFTER PRESENTING WITH FAMILY CO N/V/D AND SEVERE WEAKNESS AND NEW ONSET OF CONFUSION. PT HAD ADMISSION LABS IN ED REVEALING ABNORMAL LFT'S AND DEHYDRATION AND UTI. PT IS JAUNDICE, ACUTE FINDINGS. PT'S FAMILY STATE SHE HAD SUDDEN ON N/V/D FOR SEVERAL DAYS AND PROGRESS TO DEHYDRATION AND CONFUSION. PT HAD CT HEAD AND CT ABD PELVIS IN ED. PT ADMITTED FOR FURTHER EVLAUATION AND TREATMENT OF ACUTE ILLNESS. - Past Medical History Past Medical History: Arthritis, Hypertension - Past Surgical History Surgical History: Hysterectomy, Tonsillectomy - Family History Family Medical History: Cancer - Social History Does patient currently use any type of tobacco product: No Have you used tobacco products in the last 12 months: No Type of Tobacco Use: None Does any household member use tobacco: No Alcohol Use: None Drug Use: None - Medications Home Medications: Losartan Potassium 12.5 mg PO DAILY 06/24/17 [History Confirmed 06/24/17] - Review of Systems Constitutional: Fever, Chills, Weakness, Malaise Eyes: No Symptoms Reported ENT: No Symptoms Reported Cardiovascular: Edema Gastrointestinal: Nausea, Vomiting, Abdominal Pain, Diarrhea Genitourinary: No Symptoms Reported Musculoskeletal: Back Pain Skin: Jaundice Neurological: Weakness, Confusion - Physical Exam Vital Signs: Temperature 98.2 F Pulse Rate [Right Brachial] 71 Pulse Rate [Left Brachial] 78 Pulse Rate 82 Respiratory Rate 20 Blood Pressure [Left Arm] 120/64 Blood Pressure [Right Arm] 136/69 Blood Pressure 119/59 O2 Sat by Pulse Oximetry 96 Oriented: Person Eyes: Normal Ear: Normal Nose: Normal Throat: Normal Respiratory: RLL Diminished, LLL Diminished Cardiovascular: Tachycardia, Edema : Normal Auscultation: Bowel Sounds: Increased Tenderness: RUQ, Epigastric Skin: Decreased Turgur, Other (GENERALIZED JAUNDICE) Psychiatric: Normal Speech Pattern: Clear, Appropriate - Assessment/Plan (1) Abdominal pain Qualifiers: Abdominal location: generalized Qualified Code(s): R10.84 - Generalized abdominal pain Status: Acute Plan: ADMIT, IV HYDRATION. DAILY LABS, IV ATBX, BLOOD AND URINE CULTURES. VERIFY HOME MEDS, PAIN AND NAUSEA CONTROL. BP MONITORING. STOOL STUDIES (2) UTI (urinary tract infection) Status: Acute (3) Dehydration Status: Acute (4) Gastroenteritis Status: Acute (5) Hyperbilirubinemia Status: Acute
--- NOTE | 2017-06-30 13:37 | PCM.PROG ---
Progress Note - Progress Note for Day of Date: 06/29/17 (SCRIBE FOR DR SMITH) - Subjective Subjective: 66 WF ADMITTED ON 06/24 WITH DEHYDRATION, GE, UTI. PT HAS HAD TREATMENT WITH IVF AND IV ATBX. PT HAS POSTIVE BLOOD AND URINE CULTURES FOR ECOLI, CURRENTLY ON MEROPENEM. PT HAS IMPROVED BILI, LFT'S. WITH TREATMENT PT HAS HAD GRADUAL IMPROVEMENT. AFEBRILE, PT STATES SHE STILL HAS MILD RUQ PAIN AND LOWER EXTREMITY EDEMA AND WEAKNESS. - Past Medical Family Social History Past Med/Fam/Surg Hx: No changes since H&P Allergies: Allergies No Known Drug Allergies Allergy (Verified 06/24/17 09:31) - Review of Systems ROS: No change since H&P - Vital Signs and I&O's Vital Signs: Temperature 98.2 F Pulse Rate [Right Brachial] 71 Pulse Rate [Left Brachial] 78 Pulse Rate 82 Respiratory Rate 20 Blood Pressure [Left Arm] 120/64 Blood Pressure [Right Arm] 136/69 Blood Pressure 119/59 O2 Sat by Pulse Oximetry 96 Intake and Output: Intake & Output 06/28/17 06/29/17 06/30/17 07/01/17 11:59 11:59 11:59 11:59 Intake Total 2910 3000 1357 Balance 2910 3000 1357 - Physical Exam Oriented: Person Eyes: Normal Ear: Normal Nose: Normal Throat: Normal Cardiovascular: Tachycardia, Edema : Normal Auscultation: Bowel Sounds: Increased Tenderness: RUQ, Epigastric Skin: Decreased Turgur, Other (GENERALIZED JAUNDICE, MILD, IMPROVING) Psychiatric: Normal Speech Pattern: Clear, Appropriate - Laboratory and Diagnostics Result Diagrams: 06/30/17 04:25 06/30/17 04:25 Labs: 06/24/17 09:26 Blood Blood Culture - Final 06/26/17 16:15 Stool Stool Culture - Final 06/26/17 16:15 Stool - Final 06/25/17 13:36 Blood Blood Culture - Preliminary 06/25/17 13:20 Blood Blood Culture - Preliminary 06/24/17 09:30 Blood Blood Culture - Final Escherichia Coli 06/24/17 18:41 Urine,Clean Catch Urine Culture - Final Escherichia Coli Laboratory WBC 8.1 X10^3/uL (3.6-10.0) 06/30/17 04:25 RBC 3.06 X10^6/uL (3.5-5.4) L 06/30/17 04:25 Hgb 9.2 g/dL (12.0-16.0) L 06/30/17 04:25 Hct 27.0 % (36.0-47.0) L 06/30/17 04:25 MCV 88.1 fL (80.0-100.0) 06/30/17 04:25 MCH 30.2 pg (27.0-34.0) 06/30/17 04:25 MCHC 34.3 g/dL (33.0-35.0) 06/30/17 04:25 RDW 14.2 % (11.6-16.5) 06/30/17 04:25 Plt Count 277 X10^3/uL (150.0-450.0) 06/30/17 04:25 Plt Count Comment Decreased (ADEQUATE) A 06/24/17 09:30 MPV 11.2 fL (7.4-11.0) H 06/30/17 04:25 Neut % 67.3 % (42.0-75.0) 06/30/17 04:25 Lymph % 21.9 % (21.0-51.0) 06/30/17 04:25 [place] % 7.9 % (0.0-13.0) 06/30/17 04:25 Eos % 1.9 % (0.9-2.9) 06/30/17 04:25 Baso % 1.0 % (0.2-1.0) 06/30/17 04:25 Neut # 5.5 x10^3/uL (2.2-4.8) H 06/30/17 04:25 Lymph # 1.8 X10^3/uL (1.3-2.9) 06/30/17 04:25 [place] # 0.6 x10^3/uL (0.3-0.8) 06/30/17 04:25 Eos # 0.2 x10^3/uL (0.0-0.2) 06/30/17 04:25 Baso # 0.1 X10^3/uL (0.0-0.1) 06/30/17 04:25 Absolute Nucleated RBC 0.1 /100WBC 06/30/17 04:25 Total Counted 100 06/24/17 09:30 Neutrophils % (Manual) 73 % (39-76) 06/24/17 09:30 Lymphocytes % (Manual) 14 % (13-43) 06/24/17 09:30 Monocytes % (Manual) 13 % (4-9) H 06/24/17 09:30 Plt Morphology Comment Normal (NORMAL) 06/24/17 09:30 RBC Morphology Normal (NORMAL) 06/24/17 09:30 Sodium 141 mmol/L (136-145) 06/30/17 04:25 Corrected Sodium TNP 06/30/17 04:25 Potassium 3.8 mmol/L (3.5-5.1) 06/30/17 04:25 Chloride 109 mmol/L (98-107) H 06/30/17 04:25 Carbon Dioxide 24.0 mmol/L (21-32) 06/30/17 04:25 BUN 9 mg/dL (7-18) 06/30/17 04:25 Creatinine 0.61 mg/dL (0.55-1.02) 06/30/17 04:25 Est GFR (MDRD) Af Amer > 60 (>60) 06/30/17 04:25 Est GFR (MDRD) Non-Af > 60 (>60) 06/30/17 04:25 Glucose 92 mg/dL (65-99) 06/30/17 04:25 Lactic Acid 1.9 mmol/L (0.4-2.0) 06/25/17 12:04 Calcium 7.1 mg/dL (8.5-10.1) L 06/30/17 04:25 Corrected Calcium 9.1 mg/dL (8.5-10.1) 06/30/17 04:25 Magnesium 1.8 mg/dL (1.7-2.9) 06/29/17 04:10 Total Bilirubin 1.10 mg/dL (0.2-1.0) H 06/30/17 04:25 AST 99 Units/L (15-37) H 06/30/17 04:25 ALT 53 Units/L (12-78) 06/30/17 04:25 Alkaline Phosphatase 216 Units/L (46-116) H 06/30/17 04:25 Ammonia 12 umol/L (11-32) 06/24/17 09:30 Creatine Kinase 64 Units/L (26-192) 06/24/17 09:30 CK-MB (CK-2) < 1.0 ng/mL (0-4.0) 06/24/17 09:30 CK/CKMB % Calc 1.6 % (<4) 06/24/17 09:30 Troponin I < 0.02 ng/mL (0-1.5) 06/24/17 09:30 Total Protein 6.1 g/dL (6.4-8.2) L 06/30/17 04:25 Albumin 1.5 g/dL (3.4-5.0) L 06/30/17 04:25 Globulin 4.6 g/dL (2.5-4.5) H 06/30/17 04:25 Albumin/Globulin Ratio 0.3 Ratio (1.1-2.1) L 06/30/17 04:25 Amylase 18 Units/L (25-115) L 06/25/17 04:35 Lipase 126 Units/L (73-393) 06/25/17 04:35 Specimen Type Clean catch urine 06/24/17 18:41 Urine Color Ally (YELLOW) 06/24/17 18:41 Urine Appearance Cloudy (CLEAR) 06/24/17 18:41 Urine pH 6.0 (5.0 - 8.0) 06/24/17 18:41 Ur Specific [place] 1.015 (1.000-1.030) 06/24/17 18:41 Urine Protein 3+ (NEGATIVE) 06/24/17 18:41 Urine Glucose (UA) Negative (NEGATIVE) 06/24/17 18:41 Urine Ketones Negative (NEGATIVE) 06/24/17 18:41 Urine Occult Blood 5+ (NEGATIVE) 06/24/17 18:41 Urine Nitrite Negative (NEGATIVE) 06/24/17 18:41 Urine Bilirubin 2+ (NEGATIVE) 06/24/17 18:41 Urine Urobilinogen 3+ (NORMAL) 06/24/17 18:41 Ur Leukocyte Esterase 3+ (NEGATIVE) 06/24/17 18:41 Urine RBC 5-8 /HPF (NONE SEEN) 06/24/17 18:41 Urine WBC 55-60 /HPF (NONE SEEN) 06/24/17 18:41 Ur Squamous Epith Cells Rare /HPF (NEGATIVE) 06/24/17 18:41 Amorphous Sediment 1+ /HPF (NEGATIVE) 06/24/17 18:41 Urine Bacteria 4+ /HPF (NEGATIVE) 06/24/17 18:41 Ur Culture Indicated? Yes/culture set up 06/24/17 18:41 Stool Description Fob tube 06/26/17 16:15 Stl Occult Blood (IFOB) Negative (NEGATIVE) 06/26/17 16:15 Stool for White Cells Negative (NEGATIVE) 06/26/17 16:15 Stl C. diff Tox B Gene Negative (NEGATIVE) 06/26/17 16:15 Stl C. diff 027-NAP1-BI Negative (NEGATIVE) 06/26/17 16:15 Influenza Type A (PCR) Negative (NEGATIVE) 06/24/17 10:00 Influenza Type B (PCR) Negative (NEGATIVE) 06/24/17 10:00 - Plan (1) Bacteremia due to Escherichia coli Status: Acute Plan: REPEAT CT SCAN AB/PELVIS. CONTINUE IV ATBX AND IV HYDRATION. ENCOURAGE ORAL HYDRATION AND AMBULATION. REVIEWED DIAGNOSTIC AND LABS TESTING WITH PT AND FAMILY. CONTINUE BP MONITORING, I & OS (2) UTI (urinary tract infection) Status: Acute (3) Gastroenteritis Status: Acute (4) Hyperbilirubinemia Status: Acute Plan: R/O UROSEPSIS. IV ATBX (5) Renal stone Status: Acute (6) Biliary dyskinesia Status: Acute (7) Sepsis due to urinary tract infection Status: Acute
--- NOTE | 2017-06-30 13:42 | PCM.PROG ---
Progress Note - Progress Note for Day of Date: 06/30/17 (SCRIBE FOR DR SMITH) - Subjective Subjective: 66 WF ADMITTED ON 06/24 WITH DEHYDRATION, GE, UTI. PT HAS HAD TREATMENT WITH IVF AND IV ATBX. PT HAS POSTIVE BLOOD AND URINE CULTURES FOR ECOLI, CURRENTLY ON MEROPENEM. PT HAS IMPROVED BILI, LFT'S. WITH TREATMENT PT HAS HAD GRADUAL IMPROVEMENT. AFEBRILE, PT STATES SHE STILL HAS MILD RUQ PAIN AND LOWER EXTREMITY EDEMA AND WEAKNESS. PT HAD REPEAT CT ABD/PELVIS ON 06/29 WITH CONTINUED RIGHT RENAL STONE 1.4CM WITH HYDROURETERONEPHROSIS, DISCUSSED FINDSING AND PROBABLE CAUSE OF UROSEPSIS, DISCUSSED NEED FOR UROLOGY CONSULT. - Past Medical Family Social History Past Med/Fam/Surg Hx: No changes since H&P Allergies: Allergies No Known Drug Allergies Allergy (Verified 06/24/17 09:31) - Review of Systems ROS: No change since H&P - Vital Signs and I&O's Vital Signs: Temperature 98.2 F Pulse Rate [Right Brachial] 71 Pulse Rate [Left Brachial] 78 Pulse Rate 82 Respiratory Rate 20 Blood Pressure [Left Arm] 120/64 Blood Pressure [Right Arm] 136/69 Blood Pressure 119/59 O2 Sat by Pulse Oximetry 96 Intake and Output: Intake & Output 06/28/17 06/29/17 06/30/17 07/01/17 11:59 11:59 11:59 11:59 Intake Total 2910 3000 1357 Balance 2910 3000 1357 - Physical Exam Oriented: Person Eyes: Normal Ear: Normal Nose: Normal Throat: Normal Respiratory: Normal Cardiovascular: Tachycardia, Edema : Normal Auscultation: Bowel Sounds: Increased Tenderness: RUQ, Epigastric Skin: Decreased Turgur, Other (GENERALIZED JAUNDICE, MILD, IMPROVING) Psychiatric: Normal Speech Pattern: Clear, Appropriate - Laboratory and Diagnostics Result Diagrams: 06/30/17 04:25 06/30/17 04:25 Labs: 06/24/17 09:26 Blood Blood Culture - Final 06/26/17 16:15 Stool Stool Culture - Final 06/26/17 16:15 Stool - Final 06/25/17 13:36 Blood Blood Culture - Preliminary 06/25/17 13:20 Blood Blood Culture - Preliminary 06/24/17 09:30 Blood Blood Culture - Final Escherichia Coli 06/24/17 18:41 Urine,Clean Catch Urine Culture - Final Escherichia Coli Laboratory WBC 8.1 X10^3/uL (3.6-10.0) 06/30/17 04:25 RBC 3.06 X10^6/uL (3.5-5.4) L 06/30/17 04:25 Hgb 9.2 g/dL (12.0-16.0) L 06/30/17 04:25 Hct 27.0 % (36.0-47.0) L 06/30/17 04:25 MCV 88.1 fL (80.0-100.0) 06/30/17 04:25 MCH 30.2 pg (27.0-34.0) 06/30/17 04:25 MCHC 34.3 g/dL (33.0-35.0) 06/30/17 04:25 RDW 14.2 % (11.6-16.5) 06/30/17 04:25 Plt Count 277 X10^3/uL (150.0-450.0) 06/30/17 04:25 Plt Count Comment Decreased (ADEQUATE) A 06/24/17 09:30 MPV 11.2 fL (7.4-11.0) H 06/30/17 04:25 Neut % 67.3 % (42.0-75.0) 06/30/17 04:25 Lymph % 21.9 % (21.0-51.0) 06/30/17 04:25 [place] % 7.9 % (0.0-13.0) 06/30/17 04:25 Eos % 1.9 % (0.9-2.9) 06/30/17 04:25 Baso % 1.0 % (0.2-1.0) 06/30/17 04:25 Neut # 5.5 x10^3/uL (2.2-4.8) H 06/30/17 04:25 Lymph # 1.8 X10^3/uL (1.3-2.9) 06/30/17 04:25 [place] # 0.6 x10^3/uL (0.3-0.8) 06/30/17 04:25 Eos # 0.2 x10^3/uL (0.0-0.2) 06/30/17 04:25 Baso # 0.1 X10^3/uL (0.0-0.1) 06/30/17 04:25 Absolute Nucleated RBC 0.1 /100WBC 06/30/17 04:25 Total Counted 100 06/24/17 09:30 Neutrophils % (Manual) 73 % (39-76) 06/24/17 09:30 Lymphocytes % (Manual) 14 % (13-43) 06/24/17 09:30 Monocytes % (Manual) 13 % (4-9) H 06/24/17 09:30 Plt Morphology Comment Normal (NORMAL) 06/24/17 09:30 RBC Morphology Normal (NORMAL) 06/24/17 09:30 Sodium 141 mmol/L (136-145) 06/30/17 04:25 Corrected Sodium TNP 06/30/17 04:25 Potassium 3.8 mmol/L (3.5-5.1) 06/30/17 04:25 Chloride 109 mmol/L (98-107) H 06/30/17 04:25 Carbon Dioxide 24.0 mmol/L (21-32) 06/30/17 04:25 BUN 9 mg/dL (7-18) 06/30/17 04:25 Creatinine 0.61 mg/dL (0.55-1.02) 06/30/17 04:25 Est GFR (MDRD) Af Amer > 60 (>60) 06/30/17 04:25 Est GFR (MDRD) Non-Af > 60 (>60) 06/30/17 04:25 Glucose 92 mg/dL (65-99) 06/30/17 04:25 Lactic Acid 1.9 mmol/L (0.4-2.0) 06/25/17 12:04 Calcium 7.1 mg/dL (8.5-10.1) L 06/30/17 04:25 Corrected Calcium 9.1 mg/dL (8.5-10.1) 06/30/17 04:25 Magnesium 1.8 mg/dL (1.7-2.9) 06/29/17 04:10 Total Bilirubin 1.10 mg/dL (0.2-1.0) H 06/30/17 04:25 AST 99 Units/L (15-37) H 06/30/17 04:25 ALT 53 Units/L (12-78) 06/30/17 04:25 Alkaline Phosphatase 216 Units/L (46-116) H 06/30/17 04:25 Ammonia 12 umol/L (11-32) 06/24/17 09:30 Creatine Kinase 64 Units/L (26-192) 06/24/17 09:30 CK-MB (CK-2) < 1.0 ng/mL (0-4.0) 06/24/17 09:30 CK/CKMB % Calc 1.6 % (<4) 06/24/17 09:30 Troponin I < 0.02 ng/mL (0-1.5) 06/24/17 09:30 Total Protein 6.1 g/dL (6.4-8.2) L 06/30/17 04:25 Albumin 1.5 g/dL (3.4-5.0) L 06/30/17 04:25 Globulin 4.6 g/dL (2.5-4.5) H 06/30/17 04:25 Albumin/Globulin Ratio 0.3 Ratio (1.1-2.1) L 06/30/17 04:25 Amylase 18 Units/L (25-115) L 06/25/17 04:35 Lipase 126 Units/L (73-393) 06/25/17 04:35 Specimen Type Clean catch urine 06/24/17 18:41 Urine Color Ally (YELLOW) 06/24/17 18:41 Urine Appearance Cloudy (CLEAR) 06/24/17 18:41 Urine pH 6.0 (5.0 - 8.0) 06/24/17 18:41 Ur Specific [place] 1.015 (1.000-1.030) 06/24/17 18:41 Urine Protein 3+ (NEGATIVE) 06/24/17 18:41 Urine Glucose (UA) Negative (NEGATIVE) 06/24/17 18:41 Urine Ketones Negative (NEGATIVE) 06/24/17 18:41 Urine Occult Blood 5+ (NEGATIVE) 06/24/17 18:41 Urine Nitrite Negative (NEGATIVE) 06/24/17 18:41 Urine Bilirubin 2+ (NEGATIVE) 06/24/17 18:41 Urine Urobilinogen 3+ (NORMAL) 06/24/17 18:41 Ur Leukocyte Esterase 3+ (NEGATIVE) 06/24/17 18:41 Urine RBC 5-8 /HPF (NONE SEEN) 06/24/17 18:41 Urine WBC 55-60 /HPF (NONE SEEN) 06/24/17 18:41 Ur Squamous Epith Cells Rare /HPF (NEGATIVE) 06/24/17 18:41 Amorphous Sediment 1+ /HPF (NEGATIVE) 06/24/17 18:41 Urine Bacteria 4+ /HPF (NEGATIVE) 06/24/17 18:41 Ur Culture Indicated? Yes/culture set up 06/24/17 18:41 Stool Description Fob tube 06/26/17 16:15 Stl Occult Blood (IFOB) Negative (NEGATIVE) 06/26/17 16:15 Stool for White Cells Negative (NEGATIVE) 06/26/17 16:15 Stl C. diff Tox B Gene Negative (NEGATIVE) 06/26/17 16:15 Stl C. diff [id number] Negative (NEGATIVE) 06/26/17 16:15 Influenza Type A (PCR) Negative (NEGATIVE) 06/24/17 10:00 Influenza Type B (PCR) Negative (NEGATIVE) 06/24/17 10:00 - Plan (1) Bacteremia due to Escherichia coli Status: Acute Plan: CONTINUE IV ATBX AND IV HYDRATION. ENCOURAGE ORAL HYDRATION AND AMBULATION. PT HAD REPEAT CT ABD/PELVIS ON 06/29 WITH CONTINUED RIGHT RENAL STONE 1.4CM WITH HYDROURETERONEPHROSIS, DISCUSSED FINDSING AND PROBABLE CAUSE OF UROSEPSIS, DISCUSSED NEED FOR UROLOGY CONSULT. CONTINUE BP MONITORING, I & OS (2) UTI (urinary tract infection) Status: Acute (3) Gastroenteritis Status: Acute (4) Hyperbilirubinemia Status: Acute Plan: R/O UROSEPSIS. IV ATBX (5) Renal stone Status: Acute (6) Biliary dyskinesia Status: Acute (7) Sepsis due to urinary tract infection Status: Acute
[2017-06-30] MEDS: ULTRAM PO PRN ×2 (15:19→21:43)
--- NOTE | 2017-06-30 16:50 | RAD ---
HISTORY: PICC line placement Study: Single-view chest Comparison: 06/24/2017 Findings: The trachea is midline. The cardiac silhouette is unremarkable. The lungs are clear without focal i nfiltrate or effusion. Left-sided PICC line is observed with the tip entering the internal jugular v ein on the left. The bony thorax is unremarkable. IMPRESSION: A PICC line extending into the left internal jugular vein is observed. Repositioning to central locat ion is recommended. Reported By:
--- NOTE | 2017-06-30 17:16 | DR.UPDATE ---
H&P Update History and Physical Update: History and Physical reviewed and patient examined. Changes noted: NO Yes with the following:Agree with H&P from Dr Mobley. will place PICC line Procedures (ALL) - Central Line Placement PCM.CLCO: written consent Time out performed: Yes Patient placed pm monitor/pulse ox: Yes MD prep: mask, gown, gloves, other Centrial line prep: chlorhexidine scrub Local anesthsia used: lidocane 1% Ultrasound used for placement: Yes Central line lumen ininserted: double (5Fr power picc. trimmed length 39cm) Post procedure: good blood return, all ports aspirated, flushed,capped, sterile dressing applied Post procedure xray: tip oc catheter in good position Patient tolerated procedure: Yes Complications: none
--- NOTE | 2017-06-30 17:23 | RAD ---
Indication: PICC line placement Exam: Portable chest Comparison: 06/30/2017 Findings: The heart is normal. The pulmonary vessels are less prominent centrally. There is a PICC li ne in place on the left which has been redirected with the tip now in the proximal superior vena cava . There is questionable minimal blunting of the right costophrenic angle. No consolidation is seen. Impression: Interval readjustment of the left PICC line with the tip in the superior vena cava. Resolving central pulmonary congestion with a questionable tiny right pleural effusion. Reported By:
[2017-06-30] MEDS: PEPCID TAB 20 MG PO SCH (21:41)
[2017-06-30] MEDS: COLACE CAP 100 MG PO SCH (21:41)
[2017-07-01] MEDS: NS 1000 ML 1,000 ML IV SCH ×4 (05:03→16:02)
[2017-07-01 05:26] LABS: BASOPHILS # (AUTO) 0.1 X10^3/uL (0.0-0.1); BASOPHILS % (AUTO) 0.8 % (0.2-1.0); EOSINOPHILS # (AUTO) 0.1 x10^3/uL (0.0-0.2); EOSINOPHILS % (AUTO) 1.8 % (0.9-2.9); HEMATOCRIT 27.8 % (36.0-47.0); HEMOGLOBIN 9.5 g/dL (12.0-16.0); LYMPHOCYTES % (AUTO) 24.8 % (21.0-51.0); MEAN CORPUSCULAR HEMOGLOBIN 30.3 pg (27.0-34.0); MEAN CORPUSCULAR HGB CONC 34.2 g/dL (33.0-35.0); MEAN CORPUSCULAR VOLUME 88.6 fL (80.0-100.0); MEAN PLATELET VOLUME 10.8 fL (7.4-11.0); MONOCYTES # (AUTO) 0.6 x10^3/uL (0.3-0.8); MONOCYTES % (AUTO) 7.4 % (0.0-13.0); NEUTROPHILS # (AUTO) 5.3 x10^3/uL (2.2-4.8); NEUTROPHILS % (AUTO) 65.2 % (42.0-75.0); PLATELET COUNT 308 X10^3/uL (150.0-450.0); RED BLOOD COUNT 3.14 X10^6/uL (3.5-5.4); RED CELL DISTRIBUTION WIDTH 13.7 % (11.6-16.5); WHITE BLOOD COUNT 8.1 X10^3/uL (3.6-10.0)
[2017-07-01 05:32] LABS: ALANINE AMINOTRANSFERASE 49 Units/L (12-78); ALBUMIN 1.6 g/dL (3.4-5.0); ALKALINE PHOSPHATASE 231 Units/L (46-116); ASPARTATE AMINO TRANSFERASE 84 Units/L (15-37); BLOOD UREA NITROGEN 9 mg/dL (7-18); CALCIUM 7.4 mg/dL (8.5-10.1); CARBON DIOXIDE 26.5 mmol/L (21-32); CHLORIDE 107 mmol/L (98-107); COR CA(FOR HYPOALB) 9.3 mg/dL (8.5-10.1); CREATININE 0.67 mg/dL (0.55-1.02); SODIUM 141 mmol/L (136-145); TOTAL PROTEIN 6.4 g/dL (6.4-8.2); eGFR BLACK RACES > 60 (>60); eGFR NON BLACK RACES > 60 (>60)
[2017-07-01] MEDS: INVANZ INJ 1 GM VIAL 1 GM in NS 100 ML IV + SPIKE MINIBAG* 100 ML IV SCH (08:49)
[2017-07-01] MEDS: PEPCID TAB 20 MG PO SCH (08:49)
[2017-07-01] MEDS: MILK OF MAGNESIA PO SCH (08:53)
[2017-07-01] MEDS: ULTRAM PO PRN (16:02)
[2017-07-01 16:30] VITALS: BP 117/59
== END 2017-07-01 18:10 | disposition short-term general hospital (02) | DRG 391 ==
LOC: ER 09:11 → MED/SURG 14:24
PROVIDERS: ADMIT Internal Medicine; ATTEND Internal Medicine
PROC: 02HV33Z Insertion of Infusion Device into Superior Vena Cava, Percutaneous Approach (ICD-10-PCS; principal; 2017-06-30)
DX: R10.84 Generalized abdominal pain (principal); A41.51 Sepsis due to Escherichia coli [E. coli]; N20.0 Calculus of kidney; E86.0 Dehydration; R41.0 Disorientation, unspecified; N39.0 Urinary tract infection, site not specified; E80.6 Other disorders of bilirubin metabolism; R53.1 Weakness; R19.7 Diarrhea, unspecified; K52.89 Other specified noninfective gastroenteritis and colitis; M54.5 Low back pain; R60.1 Generalized edema; B96.29 Other Escherichia coli [E. coli] as the cause of diseases classified elsewhere; K82.8 Other specified diseases of gallbladder; M19.90 Unspecified osteoarthritis, unspecified site
CPT/HCPCS: 36415; 70450; 71045; 71250; 74176; 74181; 76705; 78227; 80053; 81001; 82140; 82150; 82270; 82550; 82553; 83605; 83630; 83690; 83735; 84484; 85025; 87040; 87045; 87077; 87086; 87088; 87186; 87427; 87493; 87502; 87899; 93005; 93010; 96365; 96367; 99231; 99284; A4216; A4222; A9537; S0028; J0696; J1335; J1956; J2001; J2185; J2270